=== PATIENT | male | born 1975 | race Caucasian/White ===

== ENCOUNTER 2019-07-13 08:00 | Observation (INO) | payer BC ==
--- NOTE | 2019-07-13 08:31 | Emergency Department Record ---
History of Present Illness - General Chief Complaint: Chest Pain Stated Complaint: CHEST PAIN/LIGHTED HEADED Time Seen by Provider: 07/13/19 08:11 Source: Patient Mode of Arrival: Ambulatory Limitations: No limitations - History of Present Illness Initial Comments: The patient is here due to intermittent chest pains and palpitations for almost a week. The symptoms seem to come and go and are associated with mild lightheadedness at times. The patient has not had any exertional CP or HUI recently and he has had no SOB, GRACE, sweating or nausea with the recent symptoms. The symptoms do come on at rest and are associated with mild abdominal aching at times. The CP is mainly a sharp stabbing retrosternal pain that lasts seconds at a time. He was driving to work when the symptoms started this AM so he came to the ER here for evaluation. presently the patient is symptom free. He denies any recent illnesses, new medicines, and he does not have any cardiac risk factors. The patient does have a hx of a PE about 4 years ago and he is no longer on blood thinners. MD Complaint: Chest pain Onset/Timin -: Week(s) Pain Location: Substernal Pain Radiation: None Severity: Moderate Severity scale (1-10): 7 Quality: Other Consistency: Intermittent Improves With: Nothing Worsens With: Nothing Treatments Prior to Arrival: None - Related Data Home Medications Medication Instructions Recorded Confirmed Last Taken No Home Med [NO HOME MEDS] 07/13/19 07/13/19 Unknown Allergies Allergy/AdvReac Type Severity Reaction Status Date / Time No Known Drug Allergies Allergy Verified 07/13/19 08:05 Travel Screening - Travel/Exposure Within Last 30 Days Have you traveled within the last 30 days?: Yes Location Detail:: [place] - Travel/Exposure Within Last Year Have you traveled outside the [place] in the last year?: No - Additonal Travel Details Have you been exposed to anyone with a communicable illness?: No - Travel Symptoms Symptom Screening: None Review of Systems Constitutional: Denies: Chills, Fever Eyes: Denies: Eye discharge ENT: Denies: Congestion Respiratory: Denies: Cough Cardiovascular: Reports: Chest pain. Denies: Arrhythmia, Dyspnea on exertion Endocrine: Denies: Fatigue Gastrointestinal: Denies: Nausea Genitourinary: Denies: Dysuria Musculoskeletal: Denies: Arthralgia Skin: Denies: Bruising Past Medical History - SOCIAL HISTORY Smoking Status: Never smoker Alcohol Use: None Drug Use: None - RESPIRATORY Hx Respiratory Disorders: Yes Comment:: Hx of PE - CARDIOVASCULAR Hx Cardio Disorders: No - NEURO Hx Neuro Disorders: No - GI Hx GI Disorders: No - Hx Genitourinary Disorders: No - ENDOCRINE Hx Endocrine Disorders: No - MUSCULOSKELETAL Hx Musculoskeletal Disorders: No - PSYCH Hx Psych Problems: No - HEMATOLOGY/ONCOLOGY Hx Hematology/Oncology Disorders: No Family Medical History Any Significant Family History?: No Physical Exam - General General Appearance: Alert, Oriented x3, Cooperative, No acute distress - Head Head exam: Atraumatic, Normocephalic, Normal inspection - Eye Eye exam: Normal appearance, PERRL, EOMI - ENT Throat exam: Normal inspection. negative: Tonsillar erythema, Tonsillar exudate - Neck Neck exam: Normal inspection, Full ROM. negative: Tenderness - Respiratory Respiratory exam: Normal lung sounds bilaterally. negative: Respiratory distress - Cardiovascular Cardiovascular Exam: Regular rate, Normal rhythm, Normal heart sounds. negative: Diastolic murmur, Systolic murmur - GI/Abdominal GI/Abdominal exam: Soft, Normal bowel sounds. negative: Tenderness - Extremities Extremities exam: Normal inspection, Full ROM, Normal capillary refill. negative: Calf tenderness, Pedal edema, Tenderness - Back Back exam: Reports: Normal inspection - Neurological Neurological exam: Alert, Normal gait. negative: Abnormal gait, Motor sensory deficit - Psychiatric Psychiatric exam: negative: Anxious Course Vital Signs 07/13/19 08:07 Temperature 98.3 F Pulse Rate 76 Respiratory 20 Rate Blood Pressure 114/58 Pulse Ox 98 - Reevaluation(s) Reevaluation #1: The patient is doing well at this time. He denies any problems or issues or any further pain. I did discuss the neg xrays with the patient and the fact we are still waiting on the xray report. 07/13/19 09:35 Reevaluation #2: The patient is doing very well at this time. He is resting comfortably with no complaints. I did discus the neg workup with the patient. I also did recommend a short stay admission for a cardiac echo and stress test tomorrow and the patient is going to think about it. 07/13/19 10:00 Reevaluation #3: The patient does agree to a short stay admission and I did discuss the case with Dr. Vitale and he does accept the admission. 07/13/19 10:52 Medical Decision Making - Data Complexity MDM Data: Labs Ordered and/or Reviewed, X-Ray Ordered and/or Reviewed, EKG Ordered and/or Reviewed - Lab Data Result diagrams: 07/13/19 08:15 07/13/19 08:15 - EKG Data -: EKG Interpreted by Me EKG: No Acute Changes, Normal EKG - Radiology Data Radiology results: Report reviewed (CXR: Neg.) Disposition Disposition: Admit Clinical Impression: Chest pain Qualifiers: Chest pain type: unspecified Qualified Code(s): R07.9 - Chest pain, unspecified Disposition: Still a Patient at [facility] Decision to Admit: Admit from ER Decision to Admit Date: 07/13/19 Decision to Admit Time: 10:53 Accepting Physician: Winifred Time Discussed w/Accepting Physician: 10:53 Condition: (2) Stable Forms: Patient Portal Access Time of Disposition: 10:53 Quality - Quality Measures Quality Measures: N/A - Blood Pressure Screening View Details: Yes Does Patient Have Any of the Following: No Blood Pressure Classification: Normal BP Reading Systolic Measurement: 114 Diastolic Measurement: 58 Screening for High Blood Pressure: < Normal BP, F/U Not Required > [G8783]
[2019-07-13 08:38] LABS: ABSOLUTE NEUTROPHIL COUNT 3.56; BASO % 0.7 % (0-6); GRAN % 59.2 % (47-80); HEMATOCRIT 46.7 % (42.0-52.0); HEMOGLOBIN 15.6 gm/dl (14.0-18.0); LYMPH % 29.8 % (16-45); MEAN CELL VOLUME 90.3 fl (81-97); MEAN CORPUSCULAR HEMOGLOBIN 30.2 pg (27-33); MEAN CORPUSCULAR HGB CONC 33.4 g/dl (32-36); MEAN PLATELET VOLUME 9.9 fl (7.4-10.4); MONO % 7.3 % (0-9); PLATELET COUNT 304 K/uL (130-400); RED BLOOD COUNT 5.17 M/uL (4.40-5.70); RED CELL DISTRIBUTION WIDTH 12.8 % (11.5-14.5)
[2019-07-13 08:52] LABS: BLOOD UREA NITROGEN 9 mg/dL (6-20); CREATININE 0.7 mg/dL (0.7-1.2); EST GLOMERULAR FILTRATION RATE > 60 mL/min; PARTIAL THROMBOPLASTIN TIME 27.4 SECONDS (24.5-39.1); PROTHROMBIN TIME (PATIENT) 10.3 SECONDS (9.5-12.1)
[2019-07-13 08:53] LABS: TOTAL PROTEIN 7.6 g/dL (6.6-8.7)
[2019-07-13 08:55] LABS: GLUCOSE,RANDOM 181 mg/dL (74-109)
[2019-07-13 08:57] LABS: ALT/SGPT 54 U/L (<41); AST/SGOT 40 U/L (10.0-50.0)
[2019-07-13 08:58] LABS: ALB/GLOB RATIO 1.1 (1.1-1.8); ALKALINE PHOSPHATASE 95 U/L (40-129)
[2019-07-13 09:08] LABS: THYROID STIMULATING HORMONE 1.04 uIU/mL (0.270-4.20)
--- NOTE | 2019-07-13 09:50 | RADIOLOGY REPORT ---
EXAMINATION: Two View Chest Radiographs EXAM DATE: 07/13/2019 9:30 AM TECHNIQUE: Frontal and lateral views INDICATION: CP COMPARISON: None ENCOUNTER: Not applicable FINDINGS: The cardiac and mediastinal silhouettes are within normal limits. No focal airspace consolidation, pn eumothorax or pleural effusion. IMPRESSION: No radiographic evidence of an acute cardiopulmonary abnormality. Dictated by: Varun Holland on 07/13/2019 9:47 AM. .
[2019-07-13] MEDS ORDERED: ASPIRIN 325 MG TABLET PO ONE (10:48)
--- NOTE | 2019-07-13 12:58 | History & Physical ---
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 The patient says that about 1 week ago he had some mild chest pain at the center of his chest which was about a 5/10 persistent and with some radiation to his left shoulder. He says that he thought it was due to the physical nature of his work that it was just muscle pain. On his drive to work this morning the patient states that he had pressure like feeling lasting for a few minutes and this too was about 5-6/10. He states that he took some deep breaths, felt a little light headed but did not pass out. He states that he has never had symptoms like this before, denies smoking alcohol or drug use. The patient has no medical history of heart disease, hypertension or diabetes. On arrival to the ED the patients symptoms had near complete resolution. Initial workup was negative for acute cardiopulmonary disease, chest xray normal and ECG shows normal sinus without acute ST-T changes. Admit to general medical floor for observation. ECG: NSR, no acute ST-T changes, Qtc 444 CXR: Negative for acute cardiopulmonary findings. Tropinins: 0.010, serial x 2 pending. Travel Screening - Travel/Exposure Within Last 30 Days Have you traveled within the last 30 days?: Yes Location Detail:: [place] - Travel/Exposure Within Last Year Have you traveled outside the [place] in the last year?: No - Additonal Travel Details Have you been exposed to anyone with a communicable illness?: No - Travel Symptoms Symptom Screening: None Review of Systems Constitutional: Denies: Chills, Fever Eyes: Denies: Eye discharge ENT: Denies: Congestion Respiratory: Denies: Cough Cardiovascular: Reports: Chest pain. Denies: Arrhythmia, Dyspnea on exertion Endocrine: Denies: Fatigue Gastrointestinal: Denies: Nausea Genitourinary: Denies: Dysuria Musculoskeletal: Denies: Arthralgia Skin: Denies: Bruising Past Medical History - SOCIAL HISTORY Smoking Status: Never smoker Alcohol Use: None Drug Use: None - RESPIRATORY Hx Respiratory Disorders: Yes Comment:: Hx of PE - CARDIOVASCULAR Hx Cardio Disorders: No - NEURO Hx Neuro Disorders: No - GI Hx GI Disorders: No - Hx Genitourinary Disorders: No - ENDOCRINE Hx Endocrine Disorders: No - MUSCULOSKELETAL Hx Musculoskeletal Disorders: No - PSYCH Hx Psych Problems: No - HEMATOLOGY/ONCOLOGY Hx Hematology/Oncology Disorders: No Family Medical History Any Significant Family History?: No H&P Meds/Allergies - Allergies Allergies: Allergies Allergy/AdvReac Type Severity Reaction Status Date / Time No Known Drug Allergies Allergy Verified 07/13/19 08:05 - Home Medications Home Medications Medication Instructions Recorded Confirmed Last Taken No Home Med [NO HOME MEDS] 07/13/19 07/13/19 Unknown Physical Exam - Vital Signs Vital Signs: Vital Signs - Last 24 Hrs Temp Pulse Pulse Resp BP BP Pulse Ox 07/13/19 12:19 60 18 114/60 98 07/13/19 12:14 97.9 F 59 L 18 129/74 100 07/13/19 09:50 60 18 132/83 98 07/13/19 08:07 98.3 F 76 20 114/58 98 - General General Appearance: Alert, Oriented x3, Cooperative, No acute distress Limitations: No limitations - Head Head exam: Atraumatic, Normocephalic, Normal inspection - Eye Eye exam: Normal appearance, PERRL, EOMI - ENT Throat exam: Normal inspection. negative: Tonsillar erythema, Tonsillar exudate - Neck Neck exam: Normal inspection, Full ROM. negative: Tenderness - Respiratory Respiratory exam: Normal lung sounds bilaterally. negative: Respiratory distress - Cardiovascular Cardiovascular Exam: Regular rate, Normal rhythm, Normal heart sounds. negativ e: Diastolic murmur, Systolic murmur - GI/Abdominal GI/Abdominal exam: Soft, Normal bowel sounds. negative: Tenderness - Extremities Extremities exam: Normal inspection, Full ROM, Normal capillary refill. negative: Calf tenderness, Pedal edema, Tenderness - Back Back exam: Reports: Normal inspection - Neurological Neurological exam: Alert, Normal gait. negative: Abnormal gait, Motor sensory deficit - Psychiatric Psychiatric exam: negative: Anxious Results - Labs Result Diagrams: 07/13/19 08:15 07/13/19 08:15 Labs Last 24 Hours: Laboratory Results - last 24 hr 07/13/19 07/13/19 07/13/19 08:15 08:15 08:15 WBC 6.0 RBC 5.17 Hgb 15.6 Hct 46.7 MCV 90.3 MCH 30.2 MCHC 33.4 RDW 12.8 Plt Count 304 MPV 9.9 Gran % 59.2 Lymphocytes % 29.8 Monocytes % 7.3 Eosinophils % 3.0 Basophils % 0.7 Absolute Neutrophils 3.56 PT 10.3 INR 1.0 APTT 27.4 D-Dimer 0.36 Sodium 139 Potassium 3.8 Chloride 104 Carbon Dioxide 22.0 Anion Gap 13.0 BUN 9 Creatinine 0.7 Estimated GFR > 60 Random Glucose 181 H Calcium 8.9 Total Bilirubin 0.30 AST 40 ALT 54 H Alkaline Phosphatase 95 Troponin T < 0.010 Total Protein 7.6 Albumin 4.0 Globulin 3.6 Albumin/Globulin Ratio 1.1 TSH 1.04 VTE H&P Assessment - Risk for VTE Risk for VTE: Yes Risk Level: Moderate Risk Assessment Date: 07/13/19 Risk Assessment Time: 13:04 VTE Orders Placed or Will Be Placed: Yes Plan - Detailed Diagnosis and Plan (1) Chest pain Current Visit: Yes Status: Acute Qualifiers: Chest pain type: unspecified Qualified Code(s): R07.9 - Chest pain, unspecified Base Code: R07.9 - CHEST PAIN, UNSPECIFIED Comment: 07/13/19: - Central chest pain with unclear etiology. DDx: anxiety/panic attack, ACS, Arrythmias. - Admission for observation orders: tele monitor, 2D echo w/ doppler, ASA 325mg daily, Tylenol 1000mg Q6H PRN, serial troponins Q8H. (2) Hx pulmonary embolism Current Visit: Yes Status: Acute Base Code: Z86.711 - PERSONAL HISTORY OF PULMONARY EMBOLISM Comment: 07/13/19: - Hx of PE 4 years ago. - D- dimer negative, CXR negative. - Well's PE score 1.5 2/2 hx of PE but otherwise low risk. (3) DVT prophylaxis Current Visit: Yes Status: Acute Base Code: Z29.9 - ENCOUNTER FOR PROPHYLACTIC MEASURES, UNSPECIFIED Comment: 07/13/19: - Lovenox 40mg sq daily. Encourage ambulation. (4) Full code status Current Visit: Yes Status: Acute Base Code: Z78.9 - OTHER SPECIFIED HEALTH STATUS Comment: 07/13/19: - Patient is full code.
[2019-07-13] MEDS ORDERED: ENOXAPARIN 40 MG/0.4 ML SYR SQ SCH (13:00)
[2019-07-13] MEDS ORDERED: ACETAMINOPHEN 500 MG TABLET PO PRN (13:00)
[2019-07-14] MEDS ORDERED: ASPIRIN 325 MG TAB ENTERIC-COATED PO SCH (10:00)
--- NOTE | 2019-07-14 13:07 | Discharge Summary ---
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 negative: Tonsillar erythema, Tonsillar exudate - Neck Neck exam: Normal inspection, Full ROM. negative: Tenderness - Respiratory Respiratory exam: Normal lung sounds bilaterally. negative: Respiratory distress - Cardiovascular Cardiovascular Exam: Regular rate, Normal rhythm, Normal heart sounds. negative: Diastolic murmur, Systolic murmur - GI/Abdominal GI/Abdominal exam: Soft, Normal bowel sounds. negative: Tenderness - Extremities Extremities exam: Normal inspection, Full ROM, Normal capillary refill. negative: Calf tenderness, Pedal edema, Tenderness - Back Back exam: Reports: Normal inspection - Neurological Neurological exam: Alert, Normal gait. negative: Abnormal gait, Motor sensory deficit - Psychiatric Psychiatric exam: negative: Anxious Hospitalization - Hospitalization Admission Diagnosis: Chest Pain, R/O RI. - Problem List/Discharge Diagnosis (1) Chest pain Current Visit: Yes Status: Acute Discharge Diagnosis: Chest pain type: unspecified Qualified Code(s): R07.9 - Chest pain, unspecified Base Code: R07.9 - CHEST PAIN, UNSPECIFIED Comment: 07/14/19: - Central chest pain with unclear etiology. DDx: anxiety/panic attack, ACS, Arrythmias. - Admission for observation orders: tele monitor: no acute cardiac arrythmias, 2D echo w/ doppler showing normal EF,Tylenol 1000mg Q6H PRN. (2) DVT prophylaxis Current Visit: Yes Status: Acute Base Code: Z29.9 - ENCOUNTER FOR PROPHYLACTIC MEASURES, UNSPECIFIED Comment: 07/14/19: - Lovenox 40mg sq daily. Encourage ambulation. (3) Full code status Current Visit: Yes Status: Acute Base Code: Z78.9 - OTHER SPECIFIED HEALTH STATUS Comment: 07/14/19: - Patient is full code. 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 The patient says that about 1 week ago he had some mild chest pain at the center of his chest which was about a 5/10 persistent and with some radiation to his left shoulder. He says that he thought it was due to the physical nature of his work that it was just muscle pain. On his drive to work this morning the patient states that he had pressure like feeling lasting for a few minutes and this too was about 5-6/10. He states that he took some deep breaths, felt a little light headed but did not pass out. He states that he has never had symptoms like this before, denies smoking alcohol or drug use. The patient has no medical history of heart disease, hypertension or diabetes. On arrival to the ED the patients symptoms had near complete resolution. Initial workup was negative for acute cardiopulmonary disease, chest xray normal and ECG shows normal sinus without acute ST-T changes. Admit to general medical floor for observation. ECG: NSR, no acute ST-T changes, Qtc 444 CXR: Negative for acute cardiopulmonary findings. Tropinins: 0.010, serial x 2 pending. 07/14/19: The patient has no new complaint of chest pain. There were no acute events on his tele monitor overnight. 2D cardiac echo showed preserved EF 50-55% and no valvular disease. Cardiology evaluated the patient and a stress test was done which as per Cardiology was negative for ischemia. Follow up with the patient's PCP and Cardiology in [place], [place] is recommended. Procedures: Imaging and X-Rays 07/13/19 08:23 CHEST 2 VIEWS [RAD] Stat Cardiology Procedures 07/13/19 08:23 Sound Cutter NOW EKG NOW 10/16/19 13:00 Sound Cutter .Continuous EKG QDX2@0600 07/13/19 13:17 Echo W/CF & Cardiac Doppler NOW 07/14/19 11:13 Stress EKG/STD Treadmill NOW Abnormal Labs: Abnormal Lab Results 07/13/19 Range/Units 08:15 Random Glucose 181 H (74-109) mg/dL ALT 54 H (<41) U/L Condition at Discharge: (2) Stable Discharge Medications - Discharge Medications Home Medications: Ambulatory Orders No Home Med [NO HOME MEDS] 07/13/19 [Last Taken Unknown] Discharge Plan - Discharge Instructions Activity at Discharge: Resume Usual Activities As Tolerated Diet at Discharge: Low Fat, Low Cholesterol, Low Salt Diet Additional Instructions: Follow up with your primary care doctor in 1 week to have appropriate follow up from your hospital stay. If you have similar symptoms please go to the nearest ED. Quality Measures - Quality Measures Quality Measures: Documentation of Current Medications in Medical Record, Screening for High Blood Pressure and F/U Documented - Current Medications Quality Measure: Measure #130: Documentation of Current Medications Documentation of Current Medications: <Current Medications Documented/Reviewed> [G8427] - Blood Pressure Screening Quality Measure: Screening for High Blood Pressure and Follow-Up Documented Does Patient Have Any of the Following: No Blood Pressure Classification: Normal BP Reading Systolic Measurement: 114 Diastolic Measurement: 60 Screening for High Blood Pressure: < Normal BP, F/U Not Required > [G8783] - Elder Abuse Suspicion Index EASI Reference Information: Mary LOUIS, Cachorro C, Christiano D, Page Hernandez.Development and validation of a tool to assist physicians identification of elder abuse: The Elder Abuse Suspicion Index (EASI ). Journal of Elder Abuse and Neglect, 2008; 20 (3): 276-300.
--- NOTE | 2019-07-15 07:58 | Cardiology Consult ---
DATE OF CONSULTATION: 07/14/2019 REASON FOR CONSULTATION: Chest pain. HISTORY OF PRESENT ILLNESS: Mr. 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 The patient described the symptom as slight pressure in the center of the chest and then he started feeling woozy and lightheaded so he came to the Emergency Department. His initial EKG does not show any acute changes and his serial cardiac biomarkers are within normal limits. He has not had any recurrence of the symptoms. The patient does not have any history of coronary artery disease, but does have a history of pulmonary embolism about four years ago for which he took anticoagulants for six months. The patient denies any pedal edema, orthopnea, or paroxysmal nocturnal dyspnea. The patient is fairly active at home and has been able to do all of his activities without any issues. He also had an echocardiogram performed yesterday in which his ejection fraction was 50-55% without any segmental or motion abnormalities and there was no significant valvular pathology identified. ALLERGIES: No known drug allergies. HOME MEDICATIONS: The patient is not taking any meds at home. SOCIAL HISTORY: The patient is and lives and with his and kids. He denies any tobacco use, alcohol use or any other illicit drug use. REVIEW OF SYSTEMS: The patient denies any weight loss or weight gain. He denies any sleep or appetite change. Denies any bleeding disorder. His complaint of chest pain was explained in the history of present illness. He denies any history of anxiety or depression. PHYSICAL EXAMINATION: On physical examination Mr. Padgett is a delightful 43-year-old gentleman who was sitting comfortably in a chair not in any apparent distress and is alert and oriented times three. HEENT: He is normocephalic, atraumatic. His pupils are equal and reactive to light. The extraocular muscles are intact. NECK: Supple. No thyromegaly on CVS examination. He has normal S1 and S2. There is no JVD. No pedal edema. RESPIRATORY: Reveals the lungs are clear to auscultation bilaterally. ABDOMEN: Soft, nontender. NEUROLOGICAL: Nonfocal. LABORATORY DATA: Shows a white count of 6.0, hemoglobin of 15.6, hematocrit of 46.7, platelet count of 304, glucose is elevated at 181, sodium 139, potassium 3.8, CO2 is 22, and chloride is 104. BUN is 9, creatinine is 0.7. His Troponin's have been negative times three. His EKG shows a sinus rhythm, but no ST or T-wave changes suggestive of ischemia. ASSESSMENT/PLANT: CHEST PAIN. MR. PADGETT HAD CHEST PRESSURE WITH LIGHTHEADEDNESS AND DIZZINESS WHICH HAS NOT RECURRED AND HAS NOT HAPPENED BEFORE. THE PATIENT HAD A TREADMILL STRESS TEST IN WHICH HE ACHIEVED 7 METS OF WORKLOAD AND DID NOT HAVE ANY ST OR T-WAVE CHANGES SUGGESTIVE OF ISCHEMIA AND NO REPRODUCTION OF THE SAME SYMPTOMS. THE PATIENT'S CHEST PAIN MOST LIKELY WAS MUSCULOSKELETAL, GI, OR RATHER THAN CARDIAC IN NATURE. NO FURTHER CARDIAC WORK-UP IS NECESSARY AT THIS POINT IN TIME DUE TO HIS NORMAL TREADMILL WELL HIS NORMAL ECHOCARDIOGRAM PROVIDED. THE PATIENT'S HYPERGLYCEMIA WILL BE MANAGED BY THE PRIMARY TEAM. Thank you very much for involving me in the management of your patient. I will sign off. Please feel free to give me a call if any questions or concerns. JOB NUMBER: [id number] [facility]
--- NOTE | 2019-07-15 09:29 | Stress Test Report ---
DATE OF TEST: 07/14/2019 INDICATION: Chest pain. The patient's resting vital signs show a blood pressure of 111/74 mmHg with a heart rate of 98 b.p.m. The patient's resting EKG shows a sinus rhythm at 98 b.p.m. with a PA interval of 137 milliseconds, QRS duration of 106 milliseconds, and a QTc interval of 412 milliseconds. The patient was exercised on a motorized treadmill using standard Wesley protocol for a total of 6 minutes achieving 7 METs of workload. The patient achieved a maximum heart rate of 163 b.p.m. which was 92% of the maximum predicted heart rate for his age. The patient's peak blood pressure was 176/86 mmHg. The stress test was stopped because of achievement of target heart rate and fatigue. The patient's ECG does not show any ST or T-wave changes suggestive of ischemia, only occasional PVC's were seen. IMPRESSION: NORMAL ECG RESPONSE TO EXERCISE STRESS WHILE ACHIEVING 7 METS OF WORKLOAD. JOB NUMBER: [id number] MTDD
== END 2019-07-14 13:45 | disposition home or self-care (01) ==
LOC: ER 08:00 → MEDSURG 11:47
PROVIDERS: ADMIT Internal Medicine; ATTEND Internal Medicine
DX: R07.9 Chest pain, unspecified (principal); R42 Dizziness and giddiness; Z72.0 Tobacco use; Z86.711 Personal history of pulmonary embolism
CPT/HCPCS: 99285 ×2; 85025; 85730; 85610; 80053; 84443; 84484; 85379; 71046; 93005 ×2; 93010; 93017; 93306; G0378 ×2; 99217; 99220; J1650